=== PATIENT | female | born 1955 | race Caucasian/White ===

== ENCOUNTER 2017-12-16 07:49 | Inpatient (IN) | payer OTHER ==
[~2017-12-16] VITALS: Ht 160 cm; Wt 62.6 kg
[2017-12-16 07:54] VITALS: Ht 160 cm; Wt 62.6 kg
[2017-12-16 08:53] LABS: BASOPHIL % 0.4 % (0-2); PLATELET COUNT 286 x10^3mcL (130-400); RED CELL DISTRIBUTION WIDTH 14.3 % (11.5-14.5)
[2017-12-16 09:20] LABS: UA SPECIFIC GRAVITY 1.015 (1.005-1.035); microscopic required? YES; urine erythrocyte 1+ (NEGATIVE)
[2017-12-16 09:20] LABS: CARBON DIOXIDE 25.2 mmol/L (21-32)
[2017-12-16 09:25] LABS: ALBUMIN 3.4 g/dL (3.4-5.0); BILIRUBIN TOTAL 0.4 mg/dL (0.20-1.00); TOTAL PROTEIN, SERUM 7.7 g/dL (6.4-8.2)
[2017-12-16] MEDS ORDERED: ZESTRIL20 MG PO (10:15)
[2017-12-16] MEDS ORDERED: SYMBICORT1 AE3 INH (10:16)
[2017-12-16] MEDS ORDERED: ASPIR 8181 MG PO (10:16)
[2017-12-16] MEDS ORDERED: CARVEDILOL6.25 M1 PO (10:16)
[2017-12-16 13:13] VITALS: BP 168/87
[2017-12-16 15:39] LABS: MAGNESIUM 1.8 mg/dL (1.8-2.4); PHOSPHOROUS 3.7 mg/dL (2.5-4.9)
[2017-12-16 15:43] LABS: T3 TOTAL 0.92 ng/mL
[2017-12-16 15:45] LABS: CHOLESTEROL/HDL RATIO 2.5; FREE T4 0.88 ng/dL (0.76-1.46); FREE THYROXINE INDEX 2.2 ug/dL (1.4-4.5); T4(THYROXINE) 6.6 ug/dL (4.7-13.3)
[2017-12-16 17:49] VITALS: BP 155/79
[2017-12-16 22:00] VITALS: BP 134/68
[2017-12-17 06:02] VITALS: BP 130/72
[2017-12-17 06:02] LABS: BASOPHIL % 0.9 % (0-2); PLATELET COUNT 249 x10^3mcL (130-400); RED CELL DISTRIBUTION WIDTH 14.4 % (11.5-14.5)
[2017-12-17 06:14] LABS: CALCIUM 8.5 mg/dL (8.5-10.1); CARBON DIOXIDE 24.5 mmol/L (21-32); CREATININE SERUM 1.1 mg/dL (0.6-1.0); MAGNESIUM 1.8 mg/dL (1.8-2.4); PHOSPHOROUS 3.5 mg/dL (2.5-4.9); POTASSIUM SERUM 3.8 mmol/L (3.5-5.1)
[2017-12-17 09:09] VITALS: BP 140/63
[2017-12-17 17:33] VITALS: BP 148/66
[2017-12-17 21:07] VITALS: BP 153/79
[2017-12-18 05:08] VITALS: BP 141/73
[2017-12-18 05:56] LABS: BASOPHIL % 0.7 % (0-2); PLATELET COUNT 246 x10^3mcL (130-400)
[2017-12-18 06:31] LABS: CALCIUM 8.5 mg/dL (8.5-10.1); CARBON DIOXIDE 27.1 mmol/L (21-32); MAGNESIUM 1.8 mg/dL (1.8-2.4)
[2017-12-18 07:03] LABS: RED CELL DISTRIBUTION WIDTH 14.8 % (11.5-14.5)
[2017-12-18 08:05] VITALS: BP 157/86
[2017-12-18 08:59] VITALS: BP 137/70
[2017-12-18] MEDS ORDERED: LAC PO (14:02)
[2017-12-18] MEDS ORDERED: LEV500 PO (14:03)
[2017-12-18 14:10] VITALS: BP 137/70
== END 2017-12-18 14:55 | disposition home or self-care (01) | DRG 391 ==
LOC: ED 07:49 → MU 10:45
PROVIDERS: Emergency Medicine; Internal Medicine
DX: K57.32 Diverticulitis of large intestine without perforation or abscess without bleeding (principal); N17.0 Acute kidney failure with tubular necrosis; N39.0 Urinary tract infection, site not specified; I11.0 Hypertensive heart disease with heart failure; I50.9 Heart failure, unspecified; J45.909 Unspecified asthma, uncomplicated; F15.11 Other stimulant abuse, in remission; Z68.25 Body mass index [BMI] 25.0-25.9, adult; Z85.520 Personal history of malignant carcinoid tumor of kidney; Z90.5 Acquired absence of kidney; Z90.710 Acquired absence of both cervix and uterus
CPT/HCPCS: 83880; 84439; J1885; J1956; J2270; J2405; J3490; J7030; Q0092